=== PATIENT | male | born 1985 | race African-American/Black ===

== ENCOUNTER 2016-06-11 18:18 | Emergency (ER) | payer SELFPAY ==
[~2016-06-11] VITALS: Ht 177.8 cm; Wt 118.0 kg
[~2016-06-11 18:18] MED LIST: albuterol
[2016-06-11] MEDS ORDERED: HYDROCODONE/APAP 7.5/325MG 1 TAB TABLET PO ONE (19:30)
[2016-06-11 19:42] VITALS: BP 155/90
== END 2016-06-11 21:44 | disposition home or self-care (01) ==
LOC: ER 18:19
DX: S70.02XA Contusion of left hip, initial encounter (principal); S70.12XA Contusion of left thigh, initial encounter; J45.909 Unspecified asthma, uncomplicated; F17.210 Nicotine dependence, cigarettes, uncomplicated; V03.19XA Pedestrian with other conveyance injured in collision with car, pick-up truck or van in traffic accident, initial encounter; Y92.488 Other paved roadways as the place of occurrence of the external cause
CPT/HCPCS: 73502; 73552; 99284; Z7610

== ENCOUNTER 2017-03-10 09:35 | Emergency (ER) | payer SELFPAY ==
[~2017-03-10] VITALS: Ht 172.7 cm; Wt 118.0 kg
[2017-03-10] MEDS ORDERED: IBUPROFEN 600MG TABLET PO ONE (11:15)
[2017-03-10] MEDS ORDERED: BACITRACIN ZINC OINT UDPKT TOP ONE (11:30)
[2017-03-10] MEDS ORDERED: TETANUS, DIPHTHERIA, PERTUSSIS VAC/PF 0.5ML (>7YR OLD) IM ONE (11:30)
[2017-03-10 11:33] VITALS: BP 148/109
== END 2017-03-10 11:50 | disposition home or self-care (01) ==
LOC: ER 10:31
DX: S60.312A Abrasion of left thumb, initial encounter (principal); W26.8XXA Contact with other sharp object(s), not elsewhere classified, initial encounter; Y93.89 Activity, other specified; Y92.69 Other specified industrial and construction area as the place of occurrence of the external cause; Y99.0 Civilian activity done for income or pay; Z23 Encounter for immunization
CPT/HCPCS: 90471; 90715; 99283

== ENCOUNTER 2021-09-29 01:19 | Emergency (ER) | payer MEDICAID ==
[~2021-09-29] VITALS: Ht 172.7 cm; Wt 149.0 kg
[2021-09-29] MEDS ORDERED: AMLODIPINE 5MG TABLET PO ONE (01:30)
[2021-09-29 02:35] VITALS: BP 205/103
[2021-09-29] MEDS ORDERED: AMLO5TAB88 MT (02:39)
== END 2021-09-29 02:55 | disposition home or self-care (01) ==
LOC: ER 01:19
DX: I10 Essential (primary) hypertension (principal); J45.909 Unspecified asthma, uncomplicated; F12.10 Cannabis abuse, uncomplicated
CPT/HCPCS: 99283

== ENCOUNTER 2024-12-31 01:57 | Emergency (ER) | payer MEDICAID, OTHER ==
[~2024-12-31] VITALS: Ht 177.8 cm; Wt 112.0 kg
[~2024-12-31 01:57] MED LIST changes: +AMLO5TAB88 MT
[2024-12-31 02:07] VITALS: O2SAT 98
[2024-12-31] MEDS: SODIUM CHLORIDE 0.9% (SEPSIS BOLUS) IV ONE (03:27)
[2024-12-31] MEDS: PIPERACILLIN/TAZO 3.375G/50ML 50 ML IV ONE (03:28)
[2024-12-31 03:50] LABS: BASOPHILS % 0.5 % (0.0-2.0); EOSINOPHILS % 2.1 % (0.0-5.0); HEMATOCRIT. 32.7 % (42.0-52.0); HEMOGLOBIN. 10.8 g/dL (14.0-18.0); LYMPHOCYTES % 21.3 % (20.0-50.0); MEAN PLATELET VOLUME 7.3 fl (7.4-10.4); MONOCYTES % 14.5 % (2.0-8.0); NEUTROPHILS % 61.6 % (40.0-76.0); PLATELET 255 x1000/uL (130-400); RED BLOOD CELL COUNT 3.75 mill/uL (4.7-6.1); RED CELL DISTRIBUTION WIDTH 13.7 % (11.6-14.6)
[2024-12-31 04:02] LABS: CREATININE 0.7 mg/dL (0.6-1.3); UREA NITROGEN BLOOD 14 mg/dL (9-23)
[2024-12-31 04:03] LABS: TROPONIN I HIGH SENSITIVITY 6 ng/L (3.0-53)
[2024-12-31 04:04] LABS: ASPARTATE AMINOTRANSFERASE 20 IU/L (<34)
[2024-12-31 04:05] LABS: BILIRUBIN DIRECT < 0.1 mg/dL (<=3.0); BILIRUBIN TOTAL 0.2 mg/dL (0.1-1.0); PROTEIN TOTAL 7.0 g/dL (6.0-8.3)
[2024-12-31] MEDS: VANCOMYCIN 1G PREMIX 200 ML IV ONE (04:14)
[2024-12-31 04:34] LABS: CLARITY URINE CLEAR (CLEAR); COLOR URINE YELLOW (YELLOW); GLUCOSE URINE NEGATIVE (NEGATIVE); KETONES URINE NEGATIVE (NEGATIVE); LEUKOCYTE ESTERASE URINE NEGATIVE (NEGATIVE); NITRITE URINE NEGATIVE (NEGATIVE); OCCULT BLOOD URINE 2+ (NEGATIVE); PH URINE 5.5 (4.5-8.0); PROTEIN URINE TRACE (NEGATIVE); SPECIFIC GRAVITY URINE 1.015 (1.005-1.030); UROBILINOGEN URINE 0.2 E.U./dL (0.2-1.0)
[2024-12-31 04:35] VITALS: TEMP 37.1
[2024-12-31 05:05] VITALS: BP 149/98; PULSE 93; RESP 20; O2SAT 98
[2024-12-31 05:30] LABS: SQUAMOUS EPITHELIAL CELL URINE NONE SEEN /lpf (RARE/1+); WBC URINE 0-2 /hpf (0-2)
[2024-12-31 05:31] LABS: BACTERIA URINE NONE SEEN
[2024-12-31] MEDS: IOHEXOL-350 100 ML BOTTLE ONE (07:11)
== END 2024-12-31 07:52 | disposition admitted as inpatient to this hospital (09) ==
LOC: ER 01:57 → EDBEDREQ 04:59 → EDBEDREQTM 04:59 → CANRESERV 07:17 → ENRESERV 07:17 → CANBEDREQ 07:39 → ER 07:52
DX: A41.9 Sepsis, unspecified organism (principal); L89.159 Pressure ulcer of sacral region, unspecified stage; R07.89 Other chest pain; I10 Essential (primary) hypertension; J45.909 Unspecified asthma, uncomplicated; I69.354 Hemiplegia and hemiparesis following cerebral infarction affecting left non-dominant side; F12.90 Cannabis use, unspecified, uncomplicated; Z79.899 Other long term (current) drug therapy
CPT/HCPCS: 99291; 71275; 96365; 71045; 96367; 80076; 80048; 81003; 83605; 85025; 87040; 84484; 36415; 84145; 74177; 93005; Q9967; J2543; J3373; J7030